=== PATIENT | female | born 1950 | race Two or more races ===

== ENCOUNTER 2024-05-23 22:07 | Inpatient (IN) | payer OTHER ==
[~2024-05-23] VITALS: Ht 160 cm; Wt 65.8 kg
[2024-05-23] MEDS ORDERED: PANTOPRAZOLE 40 MG VIAL ONE ×2 (22:56→23:32)
[2024-05-23] MEDS: PANTOPRAZOLE 40 MG VIAL IV ONE (23:00)
[2024-05-23 23:04] LABS: BASOPHILS # (AUTO) 0.1 K/uL (0.0-0.2); BASOPHILS % (AUTO) 0.5 % (0.0-2.0); EOSINOPHILS # (AUTO) 0.2 K/uL (0.0-0.7); EOSINOPHILS % (AUTO) 1.4 % (0.0-6.0); HEMATOCRIT 21 % (33-45); LYMPHOCYTES # (AUTO) 2.3 K/uL (0.8-4.8); LYMPHOCYTES % (AUTO) 16.5 % (20.0-44.0); MEAN CORPUSCULAR HEMOGLOBIN 27 PG (26.0-33.0); MEAN CORPUSCULAR HGB CONC 32 g/dl (31.0-36.0); MEAN CORPUSCULAR VOLUME 83 fL (82-100); MONOCYTES # (AUTO) 0.8 K/uL (0.1-1.30); MONOCYTES % (AUTO) 5.3 % (2.0-12.0); NEUTROPHILS # (AUTO) 10.8 K/uL (1.8-8.9); NEUTROPHILS % (AUTO) 76.3 % (43.0-81.0); PLATELET COUNT (AUTO) 215 K/uL (150-450); RED CELL DISTRIBUTION WIDTH 15.2 % (11.5-15.0); WHITE BLOOD COUNT (AUTO) 14.2 K/uL (4.3-11.0)
[2024-05-23 23:07] LABS: HEMOGLOBIN 6.7 g/dL (11.5-14.8)
[2024-05-23 23:16] LABS: INR 1.02 (0.91-1.10); PROTHROMBIN TIME 10.8 SECS (9.2-11.1)
[2024-05-23 23:23] LABS: CALCIUM, SERUM 8.1 mg/dL (8.5-10.1); CARBON DIOXIDE 26 mmol/L (21-32); CHLORIDE 104 mmol/L (98-107); CREATININE 1.1 mg/dL (0.6-1.3); GLUCOSE 255 mg/dL (74-106); SODIUM SERUM 137 mmol/L (136-145); UREA NITROGEN, BLOOD 72 mg/dL (7-18)
[2024-05-23 23:36] LABS: ALANINE AMINOTRANSFERASE 14 U/L (12-78); ALBUMIN 2.1 g/dL (3.4-5.0); ALKALINE PHOSPHATASE 52 U/L (46-116); ASPARTATE AMINOTRANSFERASE 6 U/L (15-37); BILIRUBIN,TOTAL 0.1 mg/dL (0.2-1.0); LIPASE 76 U/L (16-77); NT-PRO BNP 99 pg/mL (0-125); TOTAL PROTEIN, SERUM 4.9 g/dL (6.4-8.2)
[2024-05-23 23:46] LABS: LACTIC ACID 2.5 mmol/L (0.4-2.0)
[2024-05-24] VITALS (7 sets, daily range): BP systolic 104–153; BP diastolic 43–58; TEMP 97.9–98.5; O2SAT 96–99
[2024-05-24] MEDS: PANTOPRAZOLE 80 MG in IV NS 0.9% 500 ML IV PRN (00:17)
[2024-05-24 00:58] LABS: APPEARANCE,URINE CLEAR (CLEAR); BILIRUBIN,URINE NEGATIVE (NEGATIVE); BLOOD, URINE NEGATIVE Ery/uL (NEGATIVE); COLOR,URINE YELLOW (YELLOW); KETONES,URINE NEGATIVE (NEGATIVE); LEUKOCYTE ESTERASE ,URINE TRACE (NEGATIVE); NITRITE, URINE NEGATIVE (NEGATIVE); PH,URINE 5.5 (5.0-8.0); PROTEIN,URINE NEGATIVE (NEGATIVE); UGLUCOSE NEGATIVE (NEGATIVE); UROBILINOGEN,URINE 0.2 EU/dL (0.2)
[2024-05-24] MEDS ORDERED: PIPERACI/TAZO 3.375GM/D5W 50ML PB IV ONE (01:21)
[2024-05-24] MEDS ORDERED: ONDANSETRON HCL/PF 4 MG/2 ML VIAL IVP PRN (01:30)
[2024-05-24] MEDS ORDERED: ACETAMINOPHEN 650 MG/SUPP.RECT RC PRN (01:30)
[2024-05-24] MEDS ORDERED: DEXTROSE 50%-WATER 50 ML DISP.SYRIN IV PRN (01:30)
[2024-05-24] MEDS ORDERED: Z GUARD REMEDY 4 OZ OINT TP PRN (01:30)
[2024-05-24] MEDS ORDERED: PANTOPRAZOLE 80 MG in IV NS 0.9% 500 ML IV PRN (01:30)
[2024-05-24 02:34] LABS: ADD URINE CULTURE NO; BACTERIA,URINE 1+ /HPF (None Seen); RBC,URINE NONE SEEN /HPF (0-2)
[2024-05-24] MEDS: PIPERACILLIN /TAZOBACTAM 3.375 G in IV D5W 50 ML IV ONE (03:02)
[2024-05-24] MEDS: IV D5/ 0.9% NACL 1,000 ML IV SCH (03:17)
[2024-05-24 04:20] LABS: BAND % (MANUAL) 1 % (0.0-5.0); LYMPHOCYTES % (MANUAL) 19 % (16-48); MONOCYTES % (MANUAL) 1 % (0-11.0); NEUTROPHILS % (MANUAL) 79 (42-76); PLATELET ESTIMATE ADEQUATE
[2024-05-24] MEDS: MORPHINE SULFATE INJ 2 MG/ML DISP.SYRIN IV PRN (05:22)
[2024-05-24 06:36] LABS: LACTIC ACID REFLEX 2.2 mmol/L (0.4-1.9)
[2024-05-24] MEDS: BLOOD SUGAR DIAGNOSTIC 1 EACH STRIP IN SCH (06:46)
[2024-05-24] MEDS: INSULIN REGULAR, HUMAN 100 UNIT/ML 3 ML VIAL SQ PRN (06:48)
[2024-05-24 08:07] LABS: BASOPHILS % (AUTO) 0.5 % (0.0-2.0); EOSINOPHILS # (AUTO) 0.1 K/uL (0.0-0.7); EOSINOPHILS % (AUTO) 1.5 % (0.0-6.0); HEMATOCRIT 23 % (33-45); HEMOGLOBIN 7.5 g/dL (11.5-14.8); LYMPHOCYTES # (AUTO) 1.7 K/uL (0.8-4.8); LYMPHOCYTES % (AUTO) 17.9 % (20.0-44.0); MEAN CORPUSCULAR HEMOGLOBIN 28 PG (26.0-33.0); MEAN CORPUSCULAR HGB CONC 32 g/dl (31.0-36.0); MEAN CORPUSCULAR VOLUME 87 fL (82-100); MONOCYTES # (AUTO) 0.6 K/uL (0.1-1.30); MONOCYTES % (AUTO) 6.1 % (2.0-12.0); PLATELET COUNT (AUTO) 181 K/uL (150-450); RED BLOOD CELL COUNT(AUTO) 2.68 MIL/uL (4.0-5.2); RED CELL DISTRIBUTION WIDTH 16.3 % (11.5-15.0); WHITE BLOOD COUNT (AUTO) 9.5 K/uL (4.3-11.0)
[2024-05-24 08:10] LABS: CALCIUM, SERUM 8.3 mg/dL (8.5-10.1); CARBON DIOXIDE 23 mmol/L (21-32); CHLORIDE 106 mmol/L (98-107); CREATININE 0.9 mg/dL (0.6-1.3); GLUCOSE 221 mg/dL (74-106); SODIUM SERUM 137 mmol/L (136-145); UREA NITROGEN, BLOOD 58 mg/dL (7-18)
[2024-05-24] MEDS: ZOSYN IVPB 3.375 G in IV D5W 50ml IV SCH (08:36)
[2024-05-24] MEDS ORDERED: [UNRECOGNIZED DRUG - CODE] PO (10:24)
[2024-05-24] MEDS ORDERED: CYAN-51 PO (10:24)
[2024-05-24] MEDS ORDERED: LISI40TA13 PO (10:24)
[2024-05-24] MEDS ORDERED: BRIM5DRO EACHEYE (10:24)
[2024-05-24] MEDS ORDERED: CHOL200010 PO (10:24)
[2024-05-24] MEDS ORDERED: PROP10DR4 EACHEYE (10:24)
[2024-05-24 12:49] LABS: IRON, SERUM 49 ug/dl (50-175); TOTAL IRON BINDING CAPACITY 260 ug/dl (250-450)
[2024-05-24] MEDS ORDERED: PIPERACILLIN /TAZOBACTAM 3.375 G in IV D5W 50 ML IV SCH (13:00)
[2024-05-24 13:02] LABS: FERRITIN 22 ng/mL (8-388)
[2024-05-24] MEDS: PIPERACI/TAZO 3.375GM/D5W 50ML PB IV ONE (13:26)
[2024-05-24 13:29] LABS: HEMOGLOBIN 6.9 g/dL (11.5-14.8)
[2024-05-24] MEDS: IV D5/ 0.9% NACL 1,000 ML IV PRN (14:41)
[2024-05-24 14:43] LABS: RETICULOCYTE COUNT 2.4 % (0.6-2.5)
[2024-05-24] MEDS ORDERED: ANESTHESIA TRAY IN PYXIS 1 EA TRAY MC ONE (14:48)
[2024-05-24 15:48] LABS: BASOPHILS % (AUTO) 0.7 % (0.0-2.0); EOSINOPHILS # (AUTO) 0.3 K/uL (0.0-0.7); EOSINOPHILS % (AUTO) 3.8 % (0.0-6.0); LYMPHOCYTES # (AUTO) 1.5 K/uL (0.8-4.8); LYMPHOCYTES % (AUTO) 21.9 % (20.0-44.0); MEAN CORPUSCULAR HEMOGLOBIN 28 PG (26.0-33.0); MEAN CORPUSCULAR HGB CONC 33 g/dl (31.0-36.0); MEAN CORPUSCULAR VOLUME 84 fL (82-100); MONOCYTES # (AUTO) 0.4 K/uL (0.1-1.30); MONOCYTES % (AUTO) 6.3 % (2.0-12.0); NEUTROPHILS # (AUTO) 4.6 K/uL (1.8-8.9); NEUTROPHILS % (AUTO) 67.3 % (43.0-81.0); PLATELET COUNT (AUTO) 158 K/uL (150-450); RED BLOOD CELL COUNT(AUTO) 2.33 MIL/uL (4.0-5.2); RED CELL DISTRIBUTION WIDTH 16.3 % (11.5-15.0); WHITE BLOOD COUNT (AUTO) 6.8 K/uL (4.3-11.0)
[2024-05-24 15:50] LABS: HEMATOCRIT 20 % (33-45)
[2024-05-24 15:57] LABS: HEMOGLOBIN 6.5 g/dL (11.5-14.8)
[2024-05-24] MEDS: PANTOPRAZOLE 40 MG VIAL IV SCH (16:31)
[2024-05-24 17:23] LABS: PLATELET ESTIMATE ADEQUATE
[2024-05-25] VITALS: BP 135/54; TEMP 98.8; O2SAT 96
[2024-05-25 01:35] LABS: BASOPHILS % (AUTO) 0.7 % (0.0-2.0); EOSINOPHILS # (AUTO) 0.3 K/uL (0.0-0.7); EOSINOPHILS % (AUTO) 4.5 % (0.0-6.0); HEMATOCRIT 23 % (33-45); HEMOGLOBIN 7.5 g/dL (11.5-14.8); LYMPHOCYTES # (AUTO) 1.3 K/uL (0.8-4.8); MEAN CORPUSCULAR HEMOGLOBIN 29 PG (26.0-33.0); MEAN CORPUSCULAR HGB CONC 34 g/dl (31.0-36.0); MEAN CORPUSCULAR VOLUME 85 fL (82-100); MONOCYTES # (AUTO) 0.4 K/uL (0.1-1.30); MONOCYTES % (AUTO) 6.4 % (2.0-12.0); NEUTROPHILS # (AUTO) 4.6 K/uL (1.8-8.9); NEUTROPHILS % (AUTO) 68.4 % (43.0-81.0); PLATELET COUNT (AUTO) 153 K/uL (150-450); RED BLOOD CELL COUNT(AUTO) 2.64 MIL/uL (4.0-5.2); RED CELL DISTRIBUTION WIDTH 15.9 % (11.5-15.0); WHITE BLOOD COUNT (AUTO) 6.7 K/uL (4.3-11.0)
[2024-05-25 04:00] VITALS: BP 156/62; TEMP 98.3; O2SAT 100
[2024-05-25 08:00] VITALS: BP 169/59; TEMP 97.9; O2SAT 97
[2024-05-25] MEDS: PANTOPRAZOLE 40 MG VIAL IV SCH (08:51)
[2024-05-25 13:12] LABS: BASOPHILS # (AUTO) 0.1 K/uL (0.0-0.2); BASOPHILS % (AUTO) 0.8 % (0.0-2.0); EOSINOPHILS # (AUTO) 0.3 K/uL (0.0-0.7); HEMATOCRIT 26 % (33-45); HEMOGLOBIN 8.6 g/dL (11.5-14.8); LYMPHOCYTES % (AUTO) 14.9 % (20.0-44.0); MEAN CORPUSCULAR HEMOGLOBIN 28 PG (26.0-33.0); MEAN CORPUSCULAR HGB CONC 33 g/dl (31.0-36.0); MEAN CORPUSCULAR VOLUME 85 fL (82-100); MONOCYTES # (AUTO) 0.4 K/uL (0.1-1.30); MONOCYTES % (AUTO) 5.8 % (2.0-12.0); NEUTROPHILS # (AUTO) 4.9 K/uL (1.8-8.9); NEUTROPHILS % (AUTO) 73.5 % (43.0-81.0); PLATELET COUNT (AUTO) 174 K/uL (150-450); RED BLOOD CELL COUNT(AUTO) 3.08 MIL/uL (4.0-5.2); RED CELL DISTRIBUTION WIDTH 15.6 % (11.5-15.0); WHITE BLOOD COUNT (AUTO) 6.7 K/uL (4.3-11.0)
[2024-05-25 13:39] LABS: CALCIUM, SERUM 8.4 mg/dL (8.5-10.1); CARBON DIOXIDE 27 mmol/L (21-32); CHLORIDE 105 mmol/L (98-107); CREATININE 0.8 mg/dL (0.6-1.3); GLUCOSE 166 mg/dL (74-106); MAGNESIUM 2.2 mg/dL (1.8-2.4); PHOSPHORUS 3.2 mg/dL (2.5-4.9); POTASSIUM 3.6 mmol/L (3.5-5.1); SODIUM SERUM 139 mmol/L (136-145); UREA NITROGEN, BLOOD 12 mg/dL (7-18)
[2024-05-25 16:00] VITALS: BP 143/60; TEMP 98.1; O2SAT 97
[2024-05-25] MEDS: ACETAMINOPHEN 325 MG TABLET PO PRN (17:12)
[2024-05-25 20:00] VITALS: BP 138/57; TEMP 97.5; O2SAT 96
[2024-05-26 04:00] VITALS: BP 141/61; TEMP 97.8; O2SAT 97
[2024-05-26 08:00] VITALS: BP 169/62; TEMP 98.1; O2SAT 97
[2024-05-26] MEDS ORDERED: AMOX-430 PO (10:01)
[2024-05-26] MEDS ORDERED: PANT40TA2 PO (10:01)
[2024-05-26 10:43] LABS: EOSINOPHILS # (AUTO) 0.3 K/uL (0.0-0.7); HEMATOCRIT 25 % (33-45); HEMOGLOBIN 8.4 g/dL (11.5-14.8); LYMPHOCYTES # (AUTO) 0.9 K/uL (0.8-4.8); LYMPHOCYTES % (AUTO) 19.8 % (20.0-44.0); MEAN CORPUSCULAR HEMOGLOBIN 28 PG (26.0-33.0); MEAN CORPUSCULAR HGB CONC 33 g/dl (31.0-36.0); MEAN CORPUSCULAR VOLUME 86 fL (82-100); MONOCYTES # (AUTO) 0.2 K/uL (0.1-1.30); MONOCYTES % (AUTO) 4.9 % (2.0-12.0); NEUTROPHILS % (AUTO) 68.3 % (43.0-81.0); PLATELET COUNT (AUTO) 194 K/uL (150-450); RED BLOOD CELL COUNT(AUTO) 2.97 MIL/uL (4.0-5.2); RED CELL DISTRIBUTION WIDTH 15.9 % (11.5-15.0); WHITE BLOOD COUNT (AUTO) 4.4 K/uL (4.3-11.0)
[2024-05-26 10:54] LABS: CALCIUM, SERUM 8.2 mg/dL (8.5-10.1); CARBON DIOXIDE 31 mmol/L (21-32); CHLORIDE 105 mmol/L (98-107); GLUCOSE 200 mg/dL (74-106); POTASSIUM 3.2 mmol/L (3.5-5.1); SODIUM SERUM 138 mmol/L (136-145); UREA NITROGEN, BLOOD 6 mg/dL (7-18)
== END 2024-05-26 13:00 | disposition home or self-care (01) | DRG 377 ==
LOC: ER 22:07 → TELE1 05-24 01:19 → MEDSG1 05-25 10:12
PROVIDERS: ADMIT Internal Medicine; ATTEND Nurse Practitioner Acute Care
PROC: 30233N1 Transfusion of Nonautologous Red Blood Cells into Peripheral Vein, Percutaneous Approach (ICD-10-PCS; principal; 2024-05-23)
PROC: 0DB68ZX Excision of Stomach, Via Natural or Artificial Opening Endoscopic, Diagnostic (ICD-10-PCS; 2024-05-24)
DX: K29.71 Gastritis, unspecified, with bleeding (principal); E43 Unspecified severe protein-calorie malnutrition; N17.0 Acute kidney failure with tubular necrosis; E44.0 Moderate protein-calorie malnutrition; E87.20 Acidosis, unspecified; N39.0 Urinary tract infection, site not specified; I10 Essential (primary) hypertension; E11.9 Type 2 diabetes mellitus without complications; K29.70 Gastritis, unspecified, without bleeding; K80.20 Calculus of gallbladder without cholecystitis without obstruction; Z90.710 Acquired absence of both cervix and uterus; E88.09 Other disorders of plasma-protein metabolism, not elsewhere classified; B96.89 Other specified bacterial agents as the cause of diseases classified elsewhere; K25.9 Gastric ulcer, unspecified as acute or chronic, without hemorrhage or perforation; D50.0 Iron deficiency anemia secondary to blood loss (chronic)
CPT/HCPCS: 36415; 71045-TC; 80048-TC; 80053-TC; 81001; 82248-TC; 82607-TC; 82728-TC; 82962-TC; 83540-TC; 83605-TC; 83690-TC; 83735-TC; 83880; 84100-TC; 84484-TC; 85025-TC; 85027-TC; 85045-TC; 85610-TC; 86850-TC; 87040-TC; 87081-TC; 88305-TC; 88313-TC; 88342; A4223; G0378; J1815; J2270; J2405; J2470; J2543; J2704; J7030; J7040; J7042; J7050; J7060; P9016

== ENCOUNTER 2024-06-08 08:06 | Emergency (ER) | payer OTHER ==
[~2024-06-08] VITALS: Ht 152.4 cm; Wt 63.5 kg
[~2024-06-08 08:06] MED LIST: AMOX-430 PO; BRIM5DRO EACHEYE; CHOL200010 PO; CYAN-51 PO; LISI40TA13 PO; PANT40TA2 PO; PROP10DR4 EACHEYE; [UNRECOGNIZED DRUG - CODE] PO
--- NOTE | 2024-06-08 08:12 | NUR ---
PT C/O OF GENERALIZED ITCHY RASH X 4 DAYS. PT TAKEN TO BED 1 AND CONNECTED TO MONITOR FOR ER MD MACHADO
--- NOTE | 2024-06-08 08:20 | NUR ---
ER AT BEDSIDE FOR EVAL
[2024-06-08] MEDS: hydrOXYzine 10 MG TABLET PO STA (08:21)
--- NOTE | 2024-06-08 08:27 | NUR ---
G[employer]ER AT BEDSIDE FOR BLOOD DRAW
[2024-06-08] MEDS ORDERED: hydrOXYzine 10 MG TABLET ONE (08:28)
[2024-06-08 08:41] LABS: BASOPHILS # (AUTO) 0.1 K/uL (0.0-0.2); EOSINOPHILS # (AUTO) 0.3 K/uL (0.0-0.7); EOSINOPHILS % (AUTO) 9.9 % (0.0-6.0); HEMATOCRIT 25 % (33-45); LYMPHOCYTES # (AUTO) 0.9 K/uL (0.8-4.8); LYMPHOCYTES % (AUTO) 28.4 % (20.0-44.0); MEAN CORPUSCULAR HEMOGLOBIN 26 PG (26.0-33.0); MEAN CORPUSCULAR HGB CONC 32 g/dl (31.0-36.0); MEAN CORPUSCULAR VOLUME 81 fL (82-100); MONOCYTES # (AUTO) 0.3 K/uL (0.1-1.30); MONOCYTES % (AUTO) 9.1 % (2.0-12.0); NEUTROPHILS # (AUTO) 1.6 K/uL (1.8-8.9); NEUTROPHILS % (AUTO) 50.6 % (43.0-81.0); PLATELET COUNT (AUTO) 400 K/uL (150-450); RED BLOOD CELL COUNT(AUTO) 3.05 MIL/uL (4.0-5.2); RED CELL DISTRIBUTION WIDTH 19.1 % (11.5-15.0); WHITE BLOOD COUNT (AUTO) 3.1 K/uL (4.3-11.0)
[2024-06-08 08:48] VITALS: TEMP 98
[2024-06-08 08:53] LABS: ALANINE AMINOTRANSFERASE 14 U/L (12-78); ALBUMIN 2.9 g/dL (3.4-5.0); ALKALINE PHOSPHATASE 65 U/L (46-116); ASPARTATE AMINOTRANSFERASE 17 U/L (15-37); BILIRUBIN,DIRECT 0.1 mg/dL (0.0-0.2); BILIRUBIN,TOTAL 0.3 mg/dL (0.2-1.0); CALCIUM, SERUM 8.8 mg/dL (8.5-10.1); CARBON DIOXIDE 31 mmol/L (21-32); CHLORIDE 105 mmol/L (98-107); CREATININE 0.9 mg/dL (0.6-1.3); GLUCOSE 159 mg/dL (74-106); POTASSIUM 3.5 mmol/L (3.5-5.1); SODIUM SERUM 141 mmol/L (136-145); TOTAL PROTEIN, SERUM 6.1 g/dL (6.4-8.2); UREA NITROGEN, BLOOD 12 mg/dL (7-18)
[2024-06-08] MEDS ORDERED: HYDR-500 PO (09:05)
[2024-06-08] MEDS ORDERED: METH4TAB3 PO (09:05)
--- NOTE | 2024-06-08 09:18 | NUR ---
Patient discharged to home in stable condition. Written and verbal after care instructions given. Patient verbalizes understanding of instruction.
[2024-06-08 09:19] VITALS: BP 135/65; O2SAT 97
== END 2024-06-08 09:19 | disposition home or self-care (01) ==
LOC: ER 08:13
DX: L29.9 Pruritus, unspecified (principal); I10 Essential (primary) hypertension
CPT/HCPCS: 99283; 85025; 80048; 80076; 36415; Q0177

== ENCOUNTER 2024-08-03 08:22 | Emergency (ER) | payer OTHER ==
[~2024-08-03] VITALS: Ht 162.6 cm; Wt 65.8 kg
[~2024-08-03 08:22] MED LIST changes: +HYDR-500 PO; +METH4TAB3 PO
[2024-08-03] MEDS ORDERED: ONDANSETRON HCL/PF 4 MG/2 ML VIAL ONE (08:53)
[2024-08-03] MEDS ORDERED: MORPHINE SULFATE INJ 4 MG/ML DISP.SYRIN ONE (08:53)
[2024-08-03] MEDS: ONDANSETRON HCL/PF 4 MG/2 ML VIAL IVP ONE (09:19)
[2024-08-03] MEDS: MORPHINE SULFATE INJ 2 MG/ML DISP.SYRIN IV ONE (09:20)
[2024-08-03] MEDS ORDERED: KETOROLAC TROMETHAMINE 15 MG/ML VIAL ONE (09:57)
[2024-08-03] MEDS: KETOROLAC TROMETHAMINE 15 MG/ML VIAL IV ONE (10:09)
[2024-08-03 10:25] VITALS: BP 150/88; TEMP 98.8; O2SAT 98
== END 2024-08-03 10:26 | disposition home or self-care (01) ==
LOC: ER 08:25
DX: G89.29 Other chronic pain (principal); M79.10 Myalgia, unspecified site; M54.2 Cervicalgia; I10 Essential (primary) hypertension; E11.9 Type 2 diabetes mellitus without complications; M81.0 Age-related osteoporosis without current pathological fracture; Z79.899 Other long term (current) drug therapy
CPT/HCPCS: 99285; 96374; 72125; 96375; J2270; J2405; J1885